=== PATIENT | male | born 1995 | race Two or more races ===

== ENCOUNTER 2019-02-14 22:14 | Emergency (ER) | payer OTHER ==
[2019-02-14 22:25] VITALS: BP 130/95
--- OUTSIDE RECORDS SUMMARY | 2019-02-14 22:25 | XMS REPORT | Summary of Care ---
:1995 Author Organization [facility] Address [address] [facility] [place] [address] Care Team Providers Name Role Phone None, [place] Primary Care Provider Unavailable Reason for Visit Reason Comments Follow-up 1-month follow-up on constipation. Encounter Details Date Type Department Care Team Description 02/06/2019 Office Visit [place], Constipation, Gastroenterology/Hepa Jessica Godinez NP unspecified tology [address] [facility] constipation type [address] [facility] [place] [address] (Primary Dx) [place] [address] [phone] Allergies No Known Allergiesdocumented as of this encounter (statuses as of 02/06/2019) Medications Medication Sig Dispensed Refills Start Date End Date Status DOCUSATE SODIUM PO Take 2 Caps by mouth 0 Active NEEDED. documented as of this encounter (statuses as of 02/06/2019) Active Problems Not on filedocumented as of this encounter (statuses as of 02/06/2019) Social History Tobacco Use Types Packs/Day Years Used Date Never Smoker Smokeless Tobacco: Never Used Sex Assigned at Date Recorded Not on file Job Start Date Occupation Industry Not on file Not on file Not on file Travel History Travel Start Travel End No recent travel history available. documented as of this encounter Last Filed Vital Signs Vital Sign Reading Time Taken Comments Blood Pressure 96/62 02/06/2019 1:19 PM EDT Pulse 72 02/06/2019 1:19 PM EDT Temperature 36.2 02/06/2019 1:19 PM EDT C (97.1 F) Respiratory Rate - - Oxygen Saturation - - Inhaled Oxygen Concentration - - Weight 60.8 kg (134 lb) 02/06/2019 1:19 PM EDT Height 175.3 cm (5' 9") 02/06/2019 1:19 PM EDT Body Mass Index 19.79 02/06/2019 1:19 PM EDT documented in this encounter Patient Instructions Patient InstructionsWillJessica barrera NP - 02/06/2019 1:00 PM EDTProceed with collecting stool as directed. Continue with diet change Follow up as needed Thank you for choosing the [facility] for your needs today! -Jessica Grande N.P. , Please call if you need to cancel or change your appt. time. Thank you for choosing [facility] for your health care needs, and for consulting with [facility] today. You may receive a survey following this visit, or after an upcoming hospital stay. As easy as it is to feel overloaded with surveys, we are required to send them out randomly and they do provide important feedback so that we may serve your needs in the best way. Please do take the few minutes required to complete the survey if you receive one. We get them too, after seeing the doctor, and they only take a few minutes to complete. documented in this encounter Progress Notes Jessica Grande NP - 02/06/2019 1:00 PM EDT PATIENT: Janie Velazquez : 1995 DATE OF SERVICE: 02/06/2019 REFERRING PRACTITIONER: Jessica Grande PRIMARY CARE PROVIDER: None, [place] CHIEF COMPLAINT: Chief Complaint Patient presents with Follow-up 1-month follow-up on constipation. Subjective HISTORY OF PRESENT ILLNESS: Janie Velazquez is a 23-y.o. male who presents for follow-up of constipation. Serum testing was unremarkable. He failed to complete stool testing. He reports full resolution with increasing dietary fiber. Denies abdominal pain, heartburn, dysphagia, fatigue, nausea, vomiting, melena, hamatemesis, hematochezia, constipation, diarrhea, jaundice, fevers, chills, night sweats, weight loss, easy bruising, chest pain, shortness of breath, dysuria, hematuria, pyuria, joint pains, acholic stools, dark urine orsystemic pruritis. Current Outpatient Medications Medication Sig DOCUSATE SODIUM PO Take 2 Caps by mouth NEEDED. No current facility-administered medications for this visit. No Known Allergies REVIEW OF SYSTEMS: All remaining review of systems was negative except for as noted in the history of present illness/subjective. Objective PHYSICAL EXAMINATION: VITALS: BP 96/62 | Pulse 72 | Temp 97.1 F (36.2 C) | Ht 5' 9" ( 1.753 m) | Wt 134 lb (60.8 kg) | BMI 19.79 kg/m Body mass index is 19.79 kg/m. GENERAL: alert, oriented, no acute distress. HEENT: No scleral icterus, MMM Psych: Affect normal Neck: supple Extrmities: no edema Skin: clear Neuro: gait normal, a&o x 3 RECTAL: exam deferred. IMPRESSION: ICD-9-CM ICD-10-CM 1. Constipation, unspecified constipation type 564.00 K59.00 Plan PLAN: Patient Instructions Proceed with collecting stool as directed. Continue with diet change Follow up as needed Thank you for choosing the [facility] for your needs today! -Jessica Grande N.P. , Please call if you need to cancel or change your appt. time. Thank you for choosing [facility] for your health care needs, and for consulting with [facility] today. You may receive a survey following this visit, or after an upcoming hospital stay. As easy as it is to feel overloaded with surveys, we are required to send them out randomly and they do provide important feedback so that we may serve your needs in the best way. Please do take the few minutes required to complete the survey if you receive one. We get them too, after seeing the doctor, and they only take a few minutes to complete. Author: Jessica Grande NP 02/06/2019 13:38 documented in this encounter Plan of Treatment Health Maintenance Due Date Last Done Comments DEPRESSION SCREENING 2007 HIV SCREENING 08/31/2010 INFLUENZA VACCINE (#1) 2019 HPV IMMUNIZATION SERIES Aged Out No longer eligible based on patient's age to complete this topic MENINGOCOCCAL VACCINE IMM Aged Out No longer eligible based on patient's age to complete this topic PNEUMOCOCCAL 0-64 YRS Aged Out No longer eligible based on patient's age to complete this topic documented as of this encounter Results Not on filedocumented in this encounter Visit Diagnoses Diagnosis Constipation, unspecified constipation type - Primary documented in this encounter documented as of this encounter
--- NOTE | 2019-02-15 00:10 | ED ---
Lower Extremity - HPI Summary HPI Summary: This pt is a 23 Y/O M presenting to [facility] for a CC of griffin pain following a soccer match 3 weeks ago after being kicked multiple times. He states that the swelling has not gone down recently. He rates the pain a 1/10 in severity. He denies any fevers, chill, SOB, N/V, headaches, and abdominal pain. He states no aggravating or alleviating symptoms. He has no pertinent PMHx. - History of Current Complaint Chief Complaint: EDExtremityLower Stated Complaint: I NEED MY GRIFFIN LOOKED AT PER PT Time Seen by Provider: 02/15/19 00:02 Hx Obtained From: Patient Mechanism Of Injury: Other - kicked in griffin Onset of Pain: Immediate Onset/Duration: Weeks - 3 Severity Initially: Moderate Severity Currently: Mild Pain Intensity: 1 Pain Scale Used: 0-10 Numeric Timing: Constant Location: Is Discrete @ - R anterior griffin Associated Signs And Symptoms: Positive: Swelling. Negative: Fever, Abdominal Pain Aggravating Factor(s): Nothing Alleviating Factor(s): Nothing Able to Bear Weight: Yes - Allergies/Home Medications Allergies/Adverse Reactions: Allergies Allergy/AdvReac Type Severity Reaction Status Date / Time No Known Allergies Allergy Verified 02/14/19 22:18 PMH/Surg Hx/FS Hx/Imm Hx Previously Healthy: Yes Endocrine/Hematology History: Denies: Hx Diabetes Cardiovascular History: Denies: Hx Hypertension Respiratory History: Denies: Hx Asthma - Surgical History Surgical History: Yes Surgery Procedure, Year, and Place: Lasix - Immunization History Immunizations Up to Date: Yes Infectious Disease History: No Infectious Disease History: Denies: Traveled Outside the [place] in Last 30 Days - Family History Known Family History: Positive: Diabetes - maternal , Respiratory Disease - asthma: paternal - Social History Occupation: Student - [employer] Lives: Dormitory/Roommates Alcohol Use: None Hx Substance Use: No Substance Use Type: Reports: None Hx Tobacco Use: No Smoking Status (MU): Never Smoked Tobacco Review of Systems Negative: Fever, Chills Negative: Shortness Of Breath Negative: Abdominal Pain, Vomiting, Nausea Positive: Other - R anterior griffin has an area of swelling, states pain Negative: Headache All Other Systems Reviewed And Are Negative: Yes Physical Exam - Summary Physical Exam Summary: Appearance: Well-appearing, Well-nourished, lying in bed comfortable Skin: Warm, dry, no obvious rash Eyes: sclera anicteric, no conjunctival pallor ENT: mucous membranes moist Neck: deferred Respiratory: No signs of respiratory distress Cardiovascular: Appears well perfused, pulses are nml Abdomen: deferred Musculoskeletal: Moving all 4 extremities without obvious discomfort. R anterior lower leg has an area of mild bruising and swelling. No erythema, redness, or heat emanating for the area. Neurological: Awake and alert, mentation is normal, speech is fluent and appropriate Psychiatric: affect is normal, does not appear anxious or depressed Triage Information Reviewed: Yes Vital Signs On Initial Exam: Initial Vitals Temp Pulse Resp BP Pulse Ox 99.2 F 59 16 130/95 99 02/14/19 22:15 02/14/19 22:15 02/14/19 22:15 02/14/19 22:15 02/14/19 22:15 Vital Signs Reviewed: Yes Procedures - Sedation Patient Received Moderate/Deep Sedation with Procedure: No Diagnostics - Vital Signs Vital Signs Temp Pulse Resp BP Pulse Ox 02/14/19 22:15 99.2 F 59 16 130/95 99 - Laboratory Lab Statement: Any lab studies that have been ordered have been reviewed, and results considered in the medical decision making process. Lower Extremity Course/Dx - Course Course Of Treatment: This pt is a 23 Y/O M presenting to [facility] for a CC of griffin pain following a soccer match 3 weeks ago after being kicked multiple times. He states that the swelling has not gone down recently. His PE found that his R anterior lower leg has an area of mild bruising and swelling. No erythema, redness, or heat emanating for the area. He was discharged home with a hematoma. - Diagnoses Provider Diagnoses: Hematoma Discharge ED - Sign-Out/Discharge Documenting (check all that apply): Patient Departure - discharge - Discharge Plan Condition: Good Disposition: HOME Patient Education Materials: Hematoma (ED) Referrals: [facility] [Outside] - If Needed () Additional Instructions: This looks like a resolving hematoma, a collection of blood under the skin from an injury. Sometimes these take several weeks to completely heal, but I don't see any sign of anything more worrisome, such as a blood clot or infection in the skin. You can play soccer but use a griffin guard to protect the area while it heals. - Billing Disposition and Condition Condition: GOOD Disposition: Home - Attestation Statements Document Initiated by Keyshawn: Yes Documenting Scribe: Dayton Castillo Provider For Whom Keyshawn is Documenting (Include Credential): Asim Vega MD Scribe Attestation: IDayton, scribed for Asim Vega MD on 02/15/19 at 0141. Scribe Documentation Reviewed: Yes Provider Attestation: The documentation as recorded by the Dayton bhatia accurately reflects the service I personally performed and the decisions made by meAsim MD Status of Scribe Document: Viewed
== END 2019-02-15 00:19 | disposition home or self-care (01) ==
LOC: ED 22:14
DX: S80.11XA Contusion of right lower leg, initial encounter (principal); W50.1XXA Accidental kick by another person, initial encounter; Y93.66 Activity, soccer; Y92.322 Soccer field as the place of occurrence of the external cause
CPT/HCPCS: 99282